=== PATIENT | male | born 1960 | race African-American/Black ===

== ENCOUNTER 2023-03-19 13:17 | Inpatient (IN) | payer OTHER ==
[2023-03-19 13:50] VITALS: BMI 22.1
[2023-03-19] MEDS ORDERED: IBUPROFEN 600 MG TABLET (FP) PO PRN (14:28)
[2023-03-19] MEDS ORDERED: MAGNESIUM HYDROX 2400MG/30ML ORAL SUSPENSION 30 ML CUP PO PRN (14:28)
[2023-03-19] MEDS ORDERED: LOPERAMIDE HCL 2 MG CAPSULE PO PRN (14:28)
[2023-03-19] MEDS ORDERED: DICYCLOMINE HCL 10 MG CAPSULE PO PRN (14:28)
[2023-03-19] MEDS ORDERED: BENZONATATE 200 MG CAPSULE PO PRN (14:28)
[2023-03-19] MEDS ORDERED: IBUPROFEN 400 MG TABLET (FP) PO PRN (14:28)
[2023-03-19] MEDS ORDERED: MAG HYDROX/AL HYDROX/SIMETH 30 ML UNIT-DOSE CUP PO PRN (14:28)
[2023-03-19] MEDS ORDERED: BISMUTH SUBSALICYLATE 524 MG/30 ML PO PRN (14:28)
[2023-03-19] MEDS ORDERED: POLYETHYLENE GLYCOL (HEALTHYLAX) 3350 17 GM PACKET PO PRN (14:28)
[2023-03-19] MEDS ORDERED: BENZOCAINE/MENTHOL (CHLORASEPTIC ) LOZENGE MM PRN (14:28)
[2023-03-19] MEDS ORDERED: guaiFENesin 600 MG TABLET.ER (FP) PO PRN (14:28)
[2023-03-19] MEDS ORDERED: ONDANSETRON *ODT* 4 MG TABLET SL PRN (14:28)
[2023-03-19] MEDS ORDERED: NALOXONE HCL (KLOXXADO) 8 MG SPRAY NS PRN (14:28)
[2023-03-19] MEDS ORDERED: ACETAMINOPHEN 325 MG TABLET (FP) PO PRN (14:28)
[2023-03-19] MEDS ORDERED: NALOXONE HCL 0.4 MG/ML VIAL IM PRN (14:28)
[2023-03-19] MEDS ORDERED: cloNIDine HCL 0.1 MG TABLET PO PRN (14:58)
[2023-03-19] MEDS ORDERED: diazePAM 5 MG TABLET PO PRN (15:03)
[2023-03-19] MEDS ORDERED: methaDONE HCL 10 MG TABLET (FOR DETOX USE ONLY) ONE (15:23)
[2023-03-19] MEDS ORDERED: methaDONE HCL 10 MG TABLET (FOR DETOX USE ONLY) PO ONE (15:30)
[2023-03-19] MEDS: THIAMINE HCL 100 MG TABLET (FP) PO SCH (22:34)
[2023-03-19] MEDS: MELATONIN 5 MG TABLETS PO SCH (22:36)
[2023-03-20] MEDS: hydrOXYzine PAMOATE 25 MG CAPSULE (FP) PO PRN (10:28)
[2023-03-20] MEDS: METHOCARBAMOL 500 MG TABLET PO PRN (10:28)
[2023-03-20] MEDS: PRENATAL VITAMINS W/ FOLIC ACID TABLET (FP) PO SCH (10:28)
[2023-03-20 11:58] LABS: HEMATOCRIT 39.6 % (35.4-49); HEMOGLOBIN 12.9 GM/dL (11.7-16.9); MCH 30.4 pg (25.7-33.7); MCHC 32.6 g/dl (32.0-35.9); MEAN CELL VOLUME 93.4 fl (80-96); MEAN PLT VOLUME 9.4 fl (7.5-11.1); PLATELET COUNT 204 10^3/uL (134-434); RBC 4.24 M/mm3 (4.00-5.60); RDW 14.2 % (11.9-15.9); WHITE BLOOD COUNT 5.3 K/mm3 (4.0-10.0)
[2023-03-20 12:11] LABS: POTASSIUM 4.7 mmol/L (3.5-5.1)
[2023-03-20 12:15] LABS: ALBUMIN 3.2 g/dl (3.4-5.0); CALCIUM 9.1 mg/dL (8.5-10.1)
[2023-03-20 12:16] LABS: BLOOD UREA NITROGEN 12.3 mg/dL (7-18)
[2023-03-20 12:18] LABS: CREATININE 0.9 mg/dL (0.55-1.3)
[2023-03-20 12:20] LABS: BILIRUBIN,TOTAL 1.1 mg/dL (0.2-1); TOT PROT 6.4 g/dl (6.4-8.2)
[2023-03-20] MEDS: MELATONIN 5 MG TABLETS PO SCH (21:47)
[2023-03-20] MEDS: THIAMINE HCL 100 MG TABLET (FP) PO SCH (21:47)
[2023-03-21] MEDS ORDERED: methaDONE HCL 10 MG TABLET (FOR DETOX USE ONLY) PO ONE (10:00)
[2023-03-21] MEDS: hydrOXYzine PAMOATE 25 MG CAPSULE (FP) PO PRN (10:04)
[2023-03-21] MEDS: PRENATAL VITAMINS W/ FOLIC ACID TABLET (FP) PO SCH (10:04)
[2023-03-21] MEDS: METHOCARBAMOL 500 MG TABLET PO PRN (10:04)
[2023-03-21 17:13] VITALS: BP 131/58; PULSE 58; RESP 17; TEMP 98
[2023-03-21] MEDS: THIAMINE HCL 100 MG TABLET (FP) PO SCH (23:15)
[2023-03-21] MEDS: MELATONIN 5 MG TABLETS PO SCH (23:15)
[2023-03-23] MEDS ORDERED: methaDONE HCL 10 MG TABLET (FOR DETOX USE ONLY) PO ONE (10:00)
== END 2023-03-22 00:08 | disposition short-term general hospital (02) | DRG 773 ==
LOC: YASAS 13:17 → Y6N 15:05
PROVIDERS: ADMIT Allergy & Immunology; ATTEND Surgery
PROC: HZ2ZZZZ Detoxification Services for Substance Abuse Treatment (ICD-10-PCS; principal; 2023-03-19)
DX: F11.23 Opioid dependence with withdrawal (principal); F10.230 Alcohol dependence with withdrawal, uncomplicated; F12.20 Cannabis dependence, uncomplicated; F17.210 Nicotine dependence, cigarettes, uncomplicated; F19.24 Other psychoactive substance dependence with psychoactive substance-induced mood disorder; F41.8 Other specified anxiety disorders; G47.00 Insomnia, unspecified; Z86.19 Personal history of other infectious and parasitic diseases
CPT/HCPCS: 36415; 80053; 85027; 86593; 86780; 87635; 87811

== ENCOUNTER 2023-03-21 17:11 | Inpatient (IN) | payer OTHER ==
[2023-03-21] MEDS ORDERED: KETOROLAC TROMETHAMINE 15 MG/ML VIAL IVPUSH ONE (18:08)
[2023-03-21] MEDS ORDERED: KETOROLAC TROMETHAMINE 15 MG/ML VIAL ONE (18:17)
[2023-03-21] MEDS ORDERED: VANCOMYCIN 1 GM in D5W (PRE-DOCKED) 1,000 MG/250 ML (RESTRICTED TO ID ONLY IVPB ONE (18:26)
[2023-03-21] MEDS ORDERED: VANCOMYCIN/WATER FOR INJ (PEG) 1,000 MG/200 ML BAG IVPB ONE (18:33)
[2023-03-21 18:53] LABS: BASO % 0.4 % (0-2.0); EOS % 2.7 % (0-4.5); HEMATOCRIT 37.9 % (35.4-49); HEMOGLOBIN 12.3 GM/dL (11.7-16.9); LYMPH % 46.6 % (8-40); MCH 30.3 pg (25.7-33.7); MCHC 32.5 g/dl (32.0-35.9); MEAN CELL VOLUME 93.5 fl (80-96); MONO % 11.2 % (3.8-10.2); NEUT % 39.1 % (42.8-82.8); PLATELET COUNT 199 10^3/uL (134-434); RBC 4.06 M/mm3 (4.00-5.60); RDW 14.3 % (11.9-15.9); WHITE BLOOD COUNT 6.1 K/mm3 (4.0-10.0)
[2023-03-21 19:14] LABS: POTASSIUM 4.4 mmol/L (3.5-5.1)
[2023-03-21 19:16] LABS: ALBUMIN 3.2 g/dl (3.4-5.0); BLOOD UREA NITROGEN 10.8 mg/dL (7-18); CALCIUM 8.9 mg/dL (8.5-10.1)
[2023-03-21 19:19] LABS: CREATININE 0.9 mg/dL (0.55-1.3)
[2023-03-21 19:21] LABS: BILIRUBIN,TOTAL 0.6 mg/dL (0.2-1); TOT PROT 6.3 g/dl (6.4-8.2)
[2023-03-21 20:35] LABS: ERYTHROCYTE SEDIMENTATION RATE 7 mm/hr (0-20)
[2023-03-22 00:02] VITALS: BMI 22.9
[2023-03-22] MEDS: KETOROLAC TROMETHAMINE 15 MG/ML VIAL IVPUSH PRN ×3 (02:21→19:03)
[2023-03-22] MEDS: ACETAMINOPHEN 1000 MG/100 ML BAG IVPB PRN ×2 (02:22→09:06)
[2023-03-22] MEDS: THIAMINE HCL 100 MG TABLET (FP) PO SCH (09:05)
[2023-03-22] MEDS: ENOXAPARIN NA (PORCINE) 40 MG/0.4 ML DISP.SYRIN SQ SCH (09:05)
[2023-03-22] MEDS: FOLIC ACID 1 MG TABLET (FP) PO SCH (09:05)
[2023-03-22] MEDS: NICOTINE 14 MG/24 HOURS TOPICAL PATCH TD SCH (09:06)
[2023-03-22 09:11] LABS: HEMATOCRIT 37.4 % (35.4-49); MCH 29.9 pg (25.7-33.7); MCHC 32.2 g/dl (32.0-35.9); MEAN CELL VOLUME 92.7 fl (80-96); MEAN PLT VOLUME 9.1 fl (7.5-11.1); PLATELET COUNT 207 10^3/uL (134-434); RBC 4.03 M/mm3 (4.00-5.60); RDW 13.9 % (11.9-15.9); WHITE BLOOD COUNT 5.1 K/mm3 (4.0-10.0)
[2023-03-22 09:37] LABS: POTASSIUM 4.4 mmol/L (3.5-5.1)
[2023-03-22 09:59] LABS: BLOOD UREA NITROGEN 10.9 mg/dL (7-18)
[2023-03-22 10:00] LABS: ALBUMIN 2.9 g/dl (3.4-5.0)
[2023-03-22] MEDS ORDERED: VANCOMYCIN 1 GM in D5W (PRE-DOCKED) 1,000 MG/250 ML (RESTRICTED TO ID ONLY IVPB SCH (10:00)
[2023-03-22 10:01] LABS: BILIRUBIN,TOTAL 1.3 mg/dL (0.2-1); CALCIUM 8.8 mg/dL (8.5-10.1)
[2023-03-22 10:02] LABS: CREATININE 0.8 mg/dL (0.55-1.3)
[2023-03-22 10:03] LABS: TOT PROT 5.9 g/dl (6.4-8.2)
[2023-03-22] MEDS: CEFTRIAXONE 1 GM in DEXTROSE 5%-WATER - 50 ML IVPB SCH (12:07)
[2023-03-23] MEDS: KETOROLAC TROMETHAMINE 15 MG/ML VIAL IVPUSH PRN ×3 (03:31→18:04)
[2023-03-23 07:31] VITALS: RESP 18
[2023-03-23 09:10] LABS: BASO % 0.4 % (0-2.0); HEMATOCRIT 36.2 % (35.4-49); MCH 30.1 pg (25.7-33.7); MCHC 33.2 g/dl (32.0-35.9); MEAN CELL VOLUME 90.9 fl (80-96); MONO % 10.7 % (3.8-10.2); NEUT % 33.9 % (42.8-82.8); PLATELET COUNT 194 10^3/uL (134-434); RBC 3.98 M/mm3 (4.00-5.60); RDW 14.4 % (11.9-15.9); WHITE BLOOD COUNT 4.9 K/mm3 (4.0-10.0)
[2023-03-23 09:44] LABS: POTASSIUM 4.9 mmol/L (3.5-5.1)
[2023-03-23 09:53] LABS: BLOOD UREA NITROGEN 13.2 mg/dL (7-18); CALCIUM 8.8 mg/dL (8.5-10.1)
[2023-03-23 09:54] LABS: ALBUMIN 2.8 g/dl (3.4-5.0)
[2023-03-23 09:57] LABS: CREATININE 0.9 mg/dL (0.55-1.3)
[2023-03-23 09:58] LABS: BILIRUBIN,TOTAL 1.3 mg/dL (0.2-1); TOT PROT 5.8 g/dl (6.4-8.2)
[2023-03-23] MEDS: CEFTRIAXONE 1 GM in DEXTROSE 5%-WATER - 50 ML IVPB SCH (10:01)
[2023-03-23] MEDS: NICOTINE 14 MG/24 HOURS TOPICAL PATCH TD SCH ×2 (10:01→10:07)
[2023-03-23] MEDS: THIAMINE HCL 100 MG TABLET (FP) PO SCH (10:02)
[2023-03-23] MEDS: FOLIC ACID 1 MG TABLET (FP) PO SCH (10:02)
[2023-03-23] MEDS: ENOXAPARIN NA (PORCINE) 40 MG/0.4 ML DISP.SYRIN SQ SCH (10:02)
[2023-03-23] MEDS: ACETAMINOPHEN 1000 MG/100 ML BAG IVPB PRN ×2 (15:20→21:48)
[2023-03-24] MEDS: KETOROLAC TROMETHAMINE 15 MG/ML VIAL IVPUSH PRN ×2 (05:45→11:12)
[2023-03-24] MEDS: FOLIC ACID 1 MG TABLET (FP) PO SCH (11:15)
[2023-03-24] MEDS: THIAMINE HCL 100 MG TABLET (FP) PO SCH (11:15)
[2023-03-24] MEDS: CEFTRIAXONE 1 GM in DEXTROSE 5%-WATER - 50 ML IVPB SCH (11:15)
[2023-03-24] MEDS: NICOTINE 14 MG/24 HOURS TOPICAL PATCH TD SCH (11:22)
[2023-03-24] MEDS: ENOXAPARIN NA (PORCINE) 40 MG/0.4 ML DISP.SYRIN SQ SCH (11:22)
[2023-03-24 16:21] VITALS: BP 133/81; PULSE 57; TEMP 98
== END 2023-03-24 15:28 | disposition other institution (70) | DRG 383 ==
LOC: JER 17:11 → JERBED 20:49 → J5S 23:25
PROVIDERS: ADMIT Internal Medicine
DX: L03.115 Cellulitis of right lower limb (principal); F10.10 Alcohol abuse, uncomplicated; F11.10 Opioid abuse, uncomplicated; F12.10 Cannabis abuse, uncomplicated; I10 Essential (primary) hypertension; F17.210 Nicotine dependence, cigarettes, uncomplicated; E78.5 Hyperlipidemia, unspecified; F39 Unspecified mood [affective] disorder; L97.818 Non-pressure chronic ulcer of other part of right lower leg with other specified severity
CPT/HCPCS: 36415; 73590-TC-RT-FY; 80053; 85025; 85027; 85651; 86140; 86705; 86803; 87040; 87070; 87205; 87340; 87517; 93005; 93010; 97116-GP; 97161-GP; 99285-25

== ENCOUNTER 2023-12-12 16:09 | Inpatient (IN) | payer OTHER ==
[2023-12-12 16:45] VITALS: BMI 21.6
[2023-12-12] MEDS ORDERED: BISMUTH SUBSALICYLATE 524 MG/30 ML PO PRN (19:43)
[2023-12-12] MEDS ORDERED: POLYETHYLENE GLYCOL (HEALTHYLAX) 3350 17 GM PACKET PO PRN (19:43)
[2023-12-12] MEDS ORDERED: ACETAMINOPHEN 325 MG TABLET (FP) PO PRN (19:43)
[2023-12-12] MEDS ORDERED: LOPERAMIDE HCL 2 MG CAPSULE PO PRN (19:43)
[2023-12-12] MEDS ORDERED: NALOXONE HCL 0.4 MG/ML VIAL IM PRN (19:43)
[2023-12-12] MEDS ORDERED: NALOXONE HCL (KLOXXADO) 8 MG SPRAY NS PRN (19:43)
[2023-12-12] MEDS ORDERED: MAGNESIUM HYDROX 2400MG/30ML ORAL SUSPENSION 30 ML CUP PO PRN (19:43)
[2023-12-12] MEDS ORDERED: ONDANSETRON *ODT* 4 MG TABLET SL PRN (19:43)
[2023-12-12] MEDS ORDERED: hydrOXYzine PAMOATE 25 MG CAPSULE (FP) PO PRN (19:43)
[2023-12-12] MEDS ORDERED: METHOCARBAMOL 500 MG TABLET PO PRN (19:43)
[2023-12-12] MEDS ORDERED: IBUPROFEN 400 MG TABLET (FP) PO PRN (19:43)
[2023-12-12] MEDS ORDERED: BENZOCAINE/MENTHOL (CHLORASEPTIC ) LOZENGE MM PRN (19:43)
[2023-12-12] MEDS ORDERED: DICYCLOMINE HCL 10 MG CAPSULE PO PRN (19:43)
[2023-12-12] MEDS ORDERED: BENZONATATE 200 MG CAPSULE PO PRN (19:43)
[2023-12-12] MEDS ORDERED: guaiFENesin 600 MG TABLET.ER (FP) PO PRN (19:43)
[2023-12-12] MEDS ORDERED: MAG HYDROX/AL HYDROX/SIMETH 30 ML UNIT-DOSE CUP PO PRN (19:43)
[2023-12-12] MEDS ORDERED: cloNIDine HCL 0.1 MG TABLET PO PRN (19:56)
[2023-12-12] MEDS ORDERED: methaDONE HCL 10 MG TABLET (FOR DETOX USE ONLY) ONE (20:06)
[2023-12-12] MEDS: methaDONE HCL 10 MG TABLET (FOR DETOX USE ONLY) PO ONE (20:33)
[2023-12-12] MEDS: MELATONIN 5 MG TABLETS PO SCH (22:37)
[2023-12-12] MEDS: THIAMINE HCL 100 MG TABLET (FP) PO SCH (22:37)
[2023-12-13] MEDS: PRENATAL VITAMINS W/ FOLIC ACID TABLET (FP) PO SCH (09:22)
[2023-12-13] MEDS: amLODIPine BESYLATE 10 MG TABLET (FP) PO SCH (09:22)
[2023-12-13] MEDS ORDERED: diazePAM 5 MG TABLET PO PRN (09:58)
[2023-12-13] MEDS: diazePAM 5 MG TABLET PO SCH (10:21)
[2023-12-13 12:00] LABS: HEMATOCRIT 37.1 % (35.4-49); HEMOGLOBIN 12.7 GM/dL (11.7-16.9); MCH 32.4 pg (25.7-33.7); MCHC 34.3 g/dl (32.0-35.9); MEAN CELL VOLUME 94.4 fl (80-96); MEAN PLT VOLUME 8.8 fl (7.5-11.1); PLATELET COUNT 182 10^3/uL (134-434); RBC 3.93 M/mm3 (4.00-5.60); RDW 13.4 % (11.9-15.9); WHITE BLOOD COUNT 6.7 K/mm3 (4.0-10.0)
[2023-12-13 12:14] LABS: CHLORIDE 107 mmol/L (98-107); POTASSIUM 4.2 mmol/L (3.5-5.1); SODIUM 141 mmol/L (136-145)
[2023-12-13 12:22] LABS: CREATININE 0.9 mg/dL (0.55-1.3); SGOT/AST 18 U/L (15-37)
[2023-12-13 12:23] LABS: TOT PROT 6.2 g/dl (6.4-8.2)
[2023-12-13 12:25] LABS: ALBUMIN 3.1 g/dl (3.4-5.0); ALK PHOS 88 U/L (45-117); BILIRUBIN,TOTAL 0.7 mg/dL (0.2-1); BLOOD UREA NITROGEN 11.9 mg/dL (7-18)
[2023-12-13 12:26] LABS: ANION GAP 6 mmol/L (4-13); CALCIUM 8.5 mg/dL (8.5-10.1); CO2 29 mmol/L (21-32); GLUCOSE,RANDOM 97 mg/dL (74-106)
[2023-12-13 12:28] LABS: SGPT/ALT 21 U/L (13-61)
[2023-12-14] MEDS: methaDONE HCL 10 MG TABLET (FOR DETOX USE ONLY) PO ONE (10:45)
[2023-12-14] MEDS: IBUPROFEN 600 MG TABLET (FP) PO PRN (20:19)
[2023-12-15] MEDS: diazePAM 5 MG TABLET PO SCH (05:55)
[2023-12-16] MEDS: diazePAM 5 MG TABLET PO SCH (06:00)
[2023-12-16] MEDS: methaDONE HCL 10 MG TABLET (FOR DETOX USE ONLY) PO ONE (09:57)
[2023-12-17] MEDS: diazePAM 5 MG TABLET PO ONE (05:31)
[2023-12-17 10:12] VITALS: BP 109/52; PULSE 66; RESP 16; TEMP 98
== END 2023-12-17 11:10 | disposition other institution (70) | DRG 773 ==
LOC: YASAS 16:09 → Y6N 20:03
PROVIDERS: ADMIT Allergy & Immunology; ATTEND Surgery
PROC: HZ2ZZZZ Detoxification Services for Substance Abuse Treatment (ICD-10-PCS; principal; 2023-12-12)
DX: F11.23 Opioid dependence with withdrawal (principal); F10.230 Alcohol dependence with withdrawal, uncomplicated; F12.20 Cannabis dependence, uncomplicated; I10 Essential (primary) hypertension; R76.8 Other specified abnormal immunological findings in serum; Z86.19 Personal history of other infectious and parasitic diseases
CPT/HCPCS: 36415; 80053; 80307; 85027; 86593; 86780; 93005; 93010

== ENCOUNTER 2024-03-24 12:33 | Inpatient (IN) | payer OTHER ==
[2024-03-24 13:12] VITALS: BMI 19.5
[2024-03-24] MEDS ORDERED: NALOXONE (NARCAN) HCL 4 MG/0.1 ML SPRAY NS PRN (14:54)
[2024-03-24] MEDS ORDERED: ONDANSETRON *ODT* 4 MG TABLET SL PRN (14:54)
[2024-03-24] MEDS ORDERED: LOPERAMIDE HCL 2 MG CAPSULE PO PRN (14:54)
[2024-03-24] MEDS ORDERED: DICYCLOMINE HCL 10 MG CAPSULE PO PRN (14:54)
[2024-03-24] MEDS ORDERED: NALOXONE HCL 0.4 MG/ML VIAL IM PRN (14:54)
[2024-03-24] MEDS ORDERED: NICOTINE POLACRILEX 2 MG GUM BUC PRN (14:54)
[2024-03-24] MEDS ORDERED: guaiFENesin 600 MG TABLET.ER (FP) PO PRN (14:54)
[2024-03-24] MEDS ORDERED: BISMUTH SUBSALICYLATE 524 MG/30 ML PO PRN (14:54)
[2024-03-24] MEDS ORDERED: ACETAMINOPHEN 325 MG TABLET (FP) PO PRN (14:54)
[2024-03-24] MEDS ORDERED: cloNIDine HCL 0.1 MG TABLET PO PRN (14:54)
[2024-03-24] MEDS ORDERED: POLYETHYLENE GLYCOL (HEALTHYLAX) 3350 17 GM PACKET PO PRN (14:54)
[2024-03-24] MEDS ORDERED: BENZOCAINE/MENTHOL (CHLORASEPTIC ) LOZENGE MM PRN (14:54)
[2024-03-24] MEDS ORDERED: BENZONATATE 200 MG CAPSULE PO PRN (14:54)
[2024-03-24] MEDS ORDERED: IBUPROFEN 400 MG TABLET (FP) PO PRN (14:54)
[2024-03-24] MEDS ORDERED: MAG HYDROX/AL HYDROX/SIMETH 30 ML UNIT-DOSE CUP PO PRN (14:54)
[2024-03-24] MEDS ORDERED: MAGNESIUM HYDROX 2400MG/30ML ORAL SUSPENSION 30 ML CUP PO PRN (14:54)
[2024-03-24] MEDS: NICOTINE 14 MG/24 HOURS TOPICAL PATCH TD SCH (15:38)
[2024-03-24] MEDS: methaDONE HCL 10 MG TABLET (FOR DETOX USE ONLY) PO ONE (16:59)
[2024-03-24] MEDS: AMOX TR/POT CLAV 875MG/125MG TABLETS (FP) PO SCH (16:59)
[2024-03-24] MEDS: METHOCARBAMOL 500 MG TABLET PO PRN (23:13)
[2024-03-24] MEDS: MELATONIN 5 MG TABLETS PO SCH (23:47)
[2024-03-24] MEDS: THIAMINE 100 MG TABLET PO SCH (23:47)
[2024-03-25] MEDS: BACITRACIN 0.9 GM PACKET TP SCH (09:40)
[2024-03-25] MEDS: PRENATAL VITAMINS W/ FOLIC ACID TABLET (FP) PO SCH (09:40)
[2024-03-25 11:20] LABS: HEMATOCRIT 35.3 % (35.4-49); HEMOGLOBIN 11.7 GM/dL (11.7-16.9); MCH 31.6 pg (25.7-33.7); MCHC 33.2 g/dl (32.0-35.9); MEAN PLT VOLUME 8.7 fl (7.5-11.1); PLATELET COUNT 171 10^3/uL (134-434); RBC 3.71 M/mm3 (4.00-5.60); RDW 14.6 % (11.9-15.9); WHITE BLOOD COUNT 5.7 K/mm3 (4.0-10.0)
[2024-03-25 11:26] LABS: CHLORIDE 109 mmol/L (98-107); SODIUM 141 mmol/L (136-145)
[2024-03-25 11:35] LABS: BLOOD UREA NITROGEN 10.2 mg/dL (7-18); CALCIUM 8.1 mg/dL (8.5-10.1)
[2024-03-25 11:36] LABS: ALBUMIN 2.8 g/dl (3.4-5.0); ANION GAP 4 mmol/L (4-13); CO2 29 mmol/L (21-32); GLUCOSE,RANDOM 84 mg/dL (74-106)
[2024-03-25 11:38] LABS: CREATININE 0.8 mg/dL (0.55-1.3); SGPT/ALT 18 U/L (13-61)
[2024-03-25 11:39] LABS: BILIRUBIN,TOTAL 0.9 mg/dL (0.2-1); SGOT/AST 12 U/L (15-37); TOT PROT 5.3 g/dl (6.4-8.2)
[2024-03-25 11:41] LABS: ALK PHOS 77 U/L (45-117)
[2024-03-26] MEDS: methaDONE HCL 10 MG TABLET (FOR DETOX USE ONLY) PO ONE (10:40)
[2024-03-27] MEDS: IBUPROFEN 600 MG TABLET (FP) PO PRN (01:47)
[2024-03-27 06:07] VITALS: BP 117/60; PULSE 60; RESP 17; TEMP 98.6
[2024-03-28] MEDS ORDERED: methaDONE HCL 10 MG TABLET (FOR DETOX USE ONLY) PO ONE (10:00)
== END 2024-03-27 11:37 | disposition home or self-care (01) | DRG 773 ==
LOC: YASAS 12:33 → Y6N 15:53
PROVIDERS: ADMIT Allergy & Immunology; ATTEND Surgery
PROC: HZ2ZZZZ Detoxification Services for Substance Abuse Treatment (ICD-10-PCS; principal; 2024-03-24)
DX: F11.23 Opioid dependence with withdrawal (principal); F10.230 Alcohol dependence with withdrawal, uncomplicated; F14.20 Cocaine dependence, uncomplicated; F12.20 Cannabis dependence, uncomplicated; F17.210 Nicotine dependence, cigarettes, uncomplicated; F19.280 Other psychoactive substance dependence with psychoactive substance-induced anxiety disorder; I10 Essential (primary) hypertension; L97.319 Non-pressure chronic ulcer of right ankle with unspecified severity; Z86.19 Personal history of other infectious and parasitic diseases; Z59.01 Sheltered homelessness
CPT/HCPCS: 36415; 80053; 80305; 80307; 85027; 86593; 86780; 93005; 93010